=== PATIENT | female | born 1965 | race Caucasian/White ===

== ENCOUNTER → 2017-01-04 | Outpatient (REF) | payer OTHER ==
[~2017-01-04] MED LIST: ALEV220C2 PO; LIDO1OIN2 TOP; LIDO5DIS36 TD; MELO15TA4 PO; NEUR300C PO; PAXI10TA2 PO; TRAM50TA2 PO
== END ==
LOC: M SFHCLERA 13:55
PROVIDERS: ATTEND Family Medicine
DX: J02.9 Acute pharyngitis, unspecified (principal)

== ENCOUNTER → 2017-02-12 | Outpatient (CLI) | payer OTHER | LOC: M LRY 11:36 | PROVIDERS: ATTEND Family Medicine | DX: F34.1 Dysthymic disorder (principal); G25.81 Restless legs syndrome ==

== ENCOUNTER → 2017-05-09 | Outpatient (REF) | payer OTHER ==
[2017-05-09 16:14] LABS: ANION GAP 5 MEQ/L (8-16); BLOOD UREA NITROGEN 13 MG/DL (7-18); CALCIUM LEVEL 9.3 MG/DL (8.5-10.1); CARBON DIOXIDE LEVEL 32 MEQ/L (21-32); CHLORIDE LEVEL 105 MEQ/L (98-107); CREATININE FOR GFR 0.81 MG/DL (0.55-1.02); GLOMERULAR FILTRATION RATE > 60.0 (>58); GLUCOSE, FASTING 84 MG/DL (70-105); POTASSIUM SERUM 4.1 MEQ/L (3.5-5.1); SODIUM LEVEL 142 MEQ/L (136-145)
== END ==
LOC: M SFHCLERA 10:55
PROVIDERS: ATTEND Family Medicine
DX: N39.3 Stress incontinence (female) (male) (principal); Z78.0 Asymptomatic menopausal state

== ENCOUNTER → 2017-05-14 | Outpatient (CLI) | payer OTHER ==
[~2017-05-14] MED LIST changes: -LIDO5DIS36 TD; +LIDO5DIS41 TD; +PAXI10TA12 PO; -PAXI10TA2 PO
--- NOTE | 2017-05-14 16:33 | REP ---
Clinical: Postmenopausal bleeding . Technique: Transabdominal pelvic ultrasound followed by transvaginal examination for better evaluation of the endometrium and adnexa with color Doppler evaluation of the ovaries. Findings: Bladder is unremarkable and measures 8.1 x 10.6 x 10.5 cm. Heterogeneous anteverted uterus measures 8.6 x 4.0 x 5.0 cm . The endometrial complex measures 4.3 mm thickness. No discrete uterine or endometrial abnormalities are appreciated. Bilateral ovaries are normal in appearance and vascularity without evidence for torsion. Right ovary measures 3.6 x 2.4 x 2.4 cm with 2.1 cm cyst ; R I = 0.66 . Left ovary measures 3.1 x 1.6 x 1.8 cm ; R I = 0.53 . No pelvic fluid or adnexal mass lesion . Impression: 1. heterogeneous anteverted uterus appears normal. 2. 2.1 cm right ovarian cyst. Signed by Will Deras MD 05/14/2017 04:25 P
--- NOTE | 2017-05-28 09:42 | REP ---
Limited bladder, pelvic sonogram: History: Stress incontinence. Findings: Transabdominal scanning demonstrates smooth bladder arshad. Pre-void bladder volume is calculated 589 mL. A small postvoid residual calculated at 27 mL is seen. No extra vesicle lesion is seen. Bladder wall is not thickened. Impression: Negative limited pelvic, bladder sonogram. Signed by Kwabena Pena MD 05/28/2017 03:43 P
== END ==
LOC: M LRY 13:52
PROVIDERS: ATTEND Family Medicine
DX: N83.201 Unspecified ovarian cyst, right side (principal); N85.4 Malposition of uterus; Z78.0 Asymptomatic menopausal state

== ENCOUNTER 2018-09-20 20:55 | Emergency (ER) | payer OTHER ==
[2018-09-20 21:20] LABS: BASO % 0.5 % (0.0-1.0); EOS # 0.1 10^3/uL (0.0-0.50); HEMATOCRIT 38.5 % (36.0-47.0); HEMOGLOBIN 13.2 g/dl (12.0-15.5); IMMATURE GRANULOCYTE % 0.2 % (0-3.0); LYMPH # 2.3 10^3/uL (1.5-4.5); LYMPH % 38.7 % (24.0-44.0); MEAN CORPUSCULAR HEMOGLOBIN 30.1 pg (27.0-33.0); MEAN CORPUSCULAR HGB CONC 34.3 g/dl (32.0-36.5); MEAN CORPUSCULAR VOLUME 87.7 fl (80.0-96.0); MONO # 0.7 10^3/uL (0.0-0.8); MONO % 10.9 % (0.0-5.0); NEUTROPHILS # 2.8 10^3/uL (1.8-7.7); NEUTROPHILS % 47.7 % (36.0-66.0); PLATELET COUNT, AUTOMATED 260 10^3/uL (150-450); RED BLOOD COUNT 4.39 10^6/uL (4.00-5.40); RED CELL DISTRIBUTION WIDTH 12.6 % (11.5-14.5); WHITE BLOOD COUNT 5.9 10^3/uL (4.0-10.0)
[2018-09-20] MEDS: GI COCKTAIL 50ML BTL(HYOSCYAMINE/MAALOX/LIDOCAINE VISCOUS)(1:3:1) PO (21:30)
[2018-09-20] MEDS: ASPIRIN 81 MG CHEW TABLET PO (21:30)
[2018-09-20] MEDS: NS 1,000 ML IV (21:30)
[2018-09-20] MEDS: PANTOPRAZOLE 40MG INJ (PROTONIX) (C9113) IV (21:30)
[2018-09-20 21:34] LABS: INR 0.84; PROTHROMBIN TIME 11.6 SECONDS (12.1-14.4)
[2018-09-20 21:47] LABS: ALBUMIN/GLOBULIN RATIO 1.21 (1.00-1.93); ALKALINE PHOSPHATASE 96 U/L (45-117); ALT/SGPT 84 U/L (12-78); ANION GAP 7 MEQ/L (8-16); AST/SGOT 95 U/L (7-37); BILIRUBIN,DIRECT < 0.1 MG/DL (0.0-0.2); BILIRUBIN,TOTAL 0.3 MG/DL (0.2-1.0); BLOOD UREA NITROGEN 13 MG/DL (7-18); CALCIUM LEVEL 9.1 MG/DL (8.5-10.1); CARBON DIOXIDE LEVEL 29 MEQ/L (21-32); CHLORIDE LEVEL 105 MEQ/L (98-107); CK-MB VALUE MASS < 1.0 NG/ML (<3.6); CPK CREATINE PHOSPHOKINASE 88 U/L (26-192); CREATININE FOR GFR 0.98 MG/DL (0.55-1.30); GLOMERULAR FILTRATION RATE > 60.0 (>51); GLUCOSE, FASTING 122 MG/DL (70-100); LIPASE 330 U/L (73-393); MB/CK RELATIVE INDEX 1.14 (< OR =4); POTASSIUM SERUM 3.9 MEQ/L (3.5-5.1); SODIUM LEVEL 141 MEQ/L (136-145); TOTAL PROTEIN 7.3 GM/DL (6.4-8.2); TROPONIN I < 0.02 NG/ML (< 0.10)
== END 2018-09-20 22:21 | disposition home or self-care (01) ==
LOC: M ED 20:55
DX: R07.89 Other chest pain (principal); Z79.899 Other long term (current) drug therapy; Z88.1 Allergy status to other antibiotic agents
CPT/HCPCS: C9113